=== PATIENT | female | born 1950 | race American Indian/Alaskan Native ===

== ENCOUNTER 2016-12-05 13:43 | Emergency (ER) | payer MEDICARE, OTHER ==
[~2016-12-05] VITALS: Ht 165.1 cm; Wt 85.0 kg
[~2016-12-05 13:43] MED LIST: ALBU0.63 NEB; AMIT100T PO; AMIT10TA PO; AMIT150T PO; APIX5TAB PO; ARIP5TAB6 PO; ASPI325T4 PO; AZIT250T89 PO; BUDE10.2 INH; CARI350T PO; CEFD300C37 PO; CLON2TAB2 PO; DIAZ10TA PO; DIAZ10TA4 PO; DICL100G8 TD; FERR325T20 PO; FLUO10CA7 PO; FLUO40CA2 PO; FURO20TA3 PO; IPRA0.2S35 INH; IRON1TAB60 PO; LEVO15TA6 PO; LEVO80CA PO; LISD60CA PO; LISD70CA3 PO; MV-M1TAB16 PO; OMEG1CAP57 PO; OMEG1CAP6 PO; OXYC-229 PO; OXYC1TAB9 PO; OXYC20TA42 PO; PANT40TA3 PO; PANT40TA5 PO; POTA10TA12 PO; POTA99TA14 PO; ROSU5TAB PO; TRAM50TA2 PO; [UNRECOGNIZED DRUG - OTHER] INH; oxygen INH
[2016-12-05] MEDS ORDERED: SODIUM CHLORIDE FLUSH 10ML SYR IVF ONE (14:30)
[2016-12-05] MEDS ORDERED: ALBUTEROL/IPRATROPIUM 2.5MG/0.5MG, 3 ML NPPB SCH (14:30)
[2016-12-05] MEDS ORDERED: SODIUM CHLORIDE 0.9% 1,000ML IVBOLUS ONE (14:30)
[2016-12-05] MEDS ORDERED: ALBUTEROL/IPRATROPIUM 2.5MG/0.5MG, 3 ML ONE (14:42)
[2016-12-05 15:18] LABS: ASPARTATE AMINO TRANSFERASE 27 U/L (15-37); BLOOD UREA NITROGEN 9 mg/dL (7-18)
[2016-12-05 15:28] LABS: IS PT STATUS REG ER OR PRE ER? YES
[2016-12-05] MEDS ORDERED: OMNIPAQUE 350 MG/ML, 100ML BOTTLE ONE (17:49)
[2016-12-05 19:49] VITALS: BP 144/63
== END 2016-12-05 19:51 | disposition home or self-care (01) ==
LOC: ED 15:59
DX: J44.1 Chronic obstructive pulmonary disease with (acute) exacerbation (principal); J20.8 Acute bronchitis due to other specified organisms; I10 Essential (primary) hypertension; Z87.891 Personal history of nicotine dependence
CPT/HCPCS: 36415; 71010; 71275; 80053; 83605; 83880; 84484; 85025; 85379; 87040; 93005; 94640; 96360; 96361; 99285; J7030; J7512; Q9967; J7620

== ENCOUNTER 2017-01-22 10:23 | Inpatient (IN) | payer MEDICARE, OTHER ==
[~2017-01-22] VITALS: Ht 165.1 cm; Wt 96.4 kg
[~2017-01-22 10:23] MED LIST changes: +IPRA4AER INH; +LIDO1KIT TP
[2017-01-22] MEDS ORDERED: methylPREDNISolone SOD SUCC 125 MG/2 ML ONE (11:26)
[2017-01-22] MEDS ORDERED: ALBUTEROL/IPRATROPIUM 2.5MG/0.5MG, 3 ML NPPB PRN (11:30)
[2017-01-22] MEDS ORDERED: SODIUM CHLORIDE FLUSH 10ML SYR IVF ONE (11:30)
[2017-01-22] MEDS ORDERED: methylPREDNISolone SOD SUCC 125 MG/2 ML IVP ONE (11:30)
[2017-01-22] MEDS ORDERED: ALBUTEROL/IPRATROPIUM 2.5MG/0.5MG, 3 ML ONE (11:40)
[2017-01-22] MEDS ORDERED: OXYcodone/APAP 10/325MG TABLET ONE (12:55)
[2017-01-22] MEDS ORDERED: OXYcodone/APAP 10/325MG TABLET PO ONE (13:00)
[2017-01-22 13:11] LABS: ASPARTATE AMINO TRANSFERASE 31 U/L (15-37); BLOOD UREA NITROGEN 12 mg/dL (7-18)
[2017-01-22 13:16] LABS: IS PT STATUS REG ER OR PRE ER? YES
[2017-01-22] MEDS ORDERED: SODIUM CHLORIDE FLUSH 10ML SYR IVF PRN (14:00)
[2017-01-22] MEDS ORDERED: POLYETHYLENE GLYCOL 17 GM PACKET PO PRN (15:00)
[2017-01-22] MEDS ORDERED: ONDANSETRON ODT 4 MG PO PRN (15:00)
[2017-01-22] MEDS ORDERED: ONDANSETRON 2MG/ML, 2ML IVPush PRN (15:00)
[2017-01-22] MEDS ORDERED: DOCUSATE 100 MG CAPSULE PO PRN (15:00)
[2017-01-22] MEDS ORDERED: DIAZEPAM 10 MG TABLET PO PRN (15:00)
[2017-01-22] MEDS ORDERED: GUAIFENESIN/DM 200-20MG, 10ML UDC PO PRN (15:00)
[2017-01-22] MEDS ORDERED: ALBUTEROL SULFATE NEB PRN (15:00)
[2017-01-22] MEDS ORDERED: BISACODYL 10 MG SUPP PR PRN (15:00)
[2017-01-22] MEDS ORDERED: ACETAMINOPHEN 325 MG TABLET PO PRN (15:00)
[2017-01-22] MEDS ORDERED: (Ipratropium/Albuterol Sulfate (Combivent Respimat Inhal Spray INH PRN (15:00)
[2017-01-22] MEDS ORDERED: CEFTRIAXONE 1,000 MG in SODIUM CHLORIDE 0.9% 50 ML IV SCH (15:30)
[2017-01-22 15:44] VITALS: BP 107/66
[2017-01-22] MEDS: ALBUTEROL/IPRATROPIUM 2.5MG/0.5MG, 3 ML NPPB SCH (16:07)
[2017-01-22] MEDS: ENOXAPARIN 40 MG/0.4 ML SQ SCH (16:29)
[2017-01-22] MEDS: OXYcodone/APAP 10/325MG TABLET PO SCH ×2 (16:29→22:11)
[2017-01-22] MEDS: OxyconTIN ER 20 MG TAB.ER PO SCH ×2 (16:29→22:12)
[2017-01-22] MEDS: methylPREDNISolone SOD SUCC 125 MG/2 ML IVPush SCH ×2 (17:48→22:12)
[2017-01-22 18:28] VITALS: BP 116/69
[2017-01-22 19:59] LABS: IS PT STATUS REG ER OR PRE ER? NO
[2017-01-22 20:00] VITALS: BP 123/68
[2017-01-22] MEDS: CARISOPRODOL 350 MG TABLET PO SCH (22:11)
[2017-01-22] MEDS: AMITRIPTYLINE 100 MG TABLET PO SCH (22:11)
[2017-01-22] MEDS: DOXYCYCLINE 100MG TABLET PO SCH (22:11)
[2017-01-23 00:52] LABS: IS PT STATUS REG ER OR PRE ER? NO
[2017-01-23 02:00] VITALS: BP 113/62
[2017-01-23] MEDS: OXYcodone/APAP 10/325MG TABLET PO SCH ×7 (02:25→23:00)
[2017-01-23 05:23] LABS: ASPARTATE AMINO TRANSFERASE 22 U/L (15-37); BLOOD UREA NITROGEN 16 mg/dL (7-18)
[2017-01-23] MEDS: methylPREDNISolone SOD SUCC 125 MG/2 ML IVPush SCH (06:17)
[2017-01-23] MEDS ORDERED: OMNIPAQUE 350 MG/ML, 100ML BOTTLE ONE (06:30)
[2017-01-23 06:41] VITALS: BP 123/75
[2017-01-23] MEDS: ALBUTEROL/IPRATROPIUM 2.5MG/0.5MG, 3 ML NPPB SCH ×4 (07:57→20:00)
[2017-01-23] MEDS ORDERED: FLUOXETINE HCL 40 MG PO SCH (09:00)
[2017-01-23] MEDS: OxyconTIN ER 20 MG TAB.ER PO SCH ×2 (09:53→23:00)
[2017-01-23] MEDS: CARISOPRODOL 350 MG TABLET PO SCH ×2 (09:53→20:55)
[2017-01-23] MEDS: DOXYCYCLINE 100MG TABLET PO SCH ×2 (09:53→20:55)
[2017-01-23] MEDS: PANTOPROZOLE 40MG TABLET PO SCH (09:53)
[2017-01-23] MEDS: LISDEXAMFETAMINE DIMESYLATE 70 MG PO SCH (12:05)
[2017-01-23] MEDS: FLUOXETINE 20 MG CAPSULE PO SCH (12:05)
[2017-01-23 13:04] VITALS: BP 114/57
[2017-01-23] MEDS ORDERED: CEFTRIAXONE PMX 1GM/50ML 50 ML IV SCH (15:30)
[2017-01-23] MEDS: ENOXAPARIN 40 MG/0.4 ML SQ SCH (16:14)
[2017-01-23 20:11] VITALS: BP 92/59
[2017-01-23] MEDS: AMITRIPTYLINE 100 MG TABLET PO SCH (20:54)
[2017-01-23 21:04] VITALS: BP 101/54
[2017-01-24 01:59] VITALS: BP 101/59
[2017-01-24] MEDS: OXYcodone/APAP 10/325MG TABLET PO SCH ×4 (03:00→14:51)
[2017-01-24 07:00] VITALS: BP 119/72
[2017-01-24] MEDS: ALBUTEROL/IPRATROPIUM 2.5MG/0.5MG, 3 ML NPPB SCH ×2 (07:00→10:21)
[2017-01-24] MEDS: CARISOPRODOL 350 MG TABLET PO SCH (08:22)
[2017-01-24] MEDS: OxyconTIN ER 20 MG TAB.ER PO SCH ×2 (08:22→14:51)
[2017-01-24] MEDS: FLUOXETINE 20 MG CAPSULE PO SCH (08:22)
[2017-01-24] MEDS: DOXYCYCLINE 100MG TABLET PO SCH (08:23)
[2017-01-24] MEDS: PANTOPROZOLE 40MG TABLET PO SCH (08:23)
[2017-01-24] MEDS: LISDEXAMFETAMINE DIMESYLATE 70 MG PO SCH (09:00)
[2017-01-24] MEDS ORDERED: CEFD300C37 PO (11:04)
[2017-01-24] MEDS ORDERED: DOXY100T PO (11:04)
[2017-01-24] MEDS ORDERED: PRED20TA PO (11:04)
[2017-01-24 12:15] VITALS: BP 116/72
[2017-01-24] MEDS: ENOXAPARIN 40 MG/0.4 ML SQ SCH (14:51)
[2017-01-24] MEDS ORDERED: CEFDINIR 300 MG CAPSULE PO SCH (21:00)
== END 2017-01-24 16:30 | disposition home or self-care (01) | DRG 189 ==
LOC: ED 12:39 → EDIP 13:34 → 3NE 15:00 → 4EST 18:22
PROVIDERS: ADMIT Internal Medicine; ATTEND Internal Medicine
DX: J96.21 Acute and chronic respiratory failure with hypoxia (principal); J45.52 Severe persistent asthma with status asthmaticus; F13.20 Sedative, hypnotic or anxiolytic dependence, uncomplicated; J44.1 Chronic obstructive pulmonary disease with (acute) exacerbation; E78.00 Pure hypercholesterolemia, unspecified; F32.9 Major depressive disorder, single episode, unspecified; Z96.651 Presence of right artificial knee joint; F43.21 Adjustment disorder with depressed mood; G89.29 Other chronic pain; F41.9 Anxiety disorder, unspecified; T38.0X5A Adverse effect of glucocorticoids and synthetic analogues, initial encounter; M54.9 Dorsalgia, unspecified; K21.9 Gastro-esophageal reflux disease without esophagitis; Z79.891 Long term (current) use of opiate analgesic; Z79.899 Other long term (current) drug therapy; Z82.5 Family history of asthma and other chronic lower respiratory diseases; Z85.3 Personal history of malignant neoplasm of breast; Z86.711 Personal history of pulmonary embolism; Z86.718 Personal history of other venous thrombosis and embolism; Z87.891 Personal history of nicotine dependence; Z92.3 Personal history of irradiation; Z99.81 Dependence on supplemental oxygen; Z90.49 Acquired absence of other specified parts of digestive tract
CPT/HCPCS: 36415; 71010; 71275; 80053; 83605; 83735; 83880; 84145; 84484; 85025; 87040; 93005; 94640; 96374; J0696; J1650; J7620; Q9967; J2930; J7512

== ENCOUNTER 2017-02-02 03:07 | Inpatient (IN) | payer MEDICARE, OTHER ==
[~2017-02-02] VITALS: Ht 167.6 cm; Wt 104.2 kg
[~2017-02-02 03:07] MED LIST changes: +DOXY100T PO; +PRED20TA PO
[2017-02-02] MEDS ORDERED: SODIUM CHLORIDE 0.9% 1,000 ML IV ONE (03:14)
[2017-02-02] MEDS ORDERED: SODIUM CHLORIDE FLUSH 10ML SYR IVF ONE (03:30)
[2017-02-02] MEDS ORDERED: methylPREDNISolone SOD SUCC 125 MG/2 ML IVP ONE (03:30)
[2017-02-02] MEDS ORDERED: methylPREDNISolone SOD SUCC 125 MG/2 ML ONE (03:45)
[2017-02-02 03:59] LABS: BLOOD UREA NITROGEN 12 mg/dL (7-18)
[2017-02-02 04:04] LABS: ASPARTATE AMINO TRANSFERASE 13 U/L (15-37)
[2017-02-02 04:05] LABS: IS PT STATUS REG ER OR PRE ER? YES
[2017-02-02] MEDS ORDERED: AZITHROMYCIN 500 MG in SODIUM CHLORIDE 0.9% 250 ML IV ONE (04:30)
[2017-02-02] MEDS ORDERED: BISACODYL 10 MG SUPP PR PRN (06:00)
[2017-02-02] MEDS ORDERED: DIAZEPAM 10 MG TABLET PO PRN (06:00)
[2017-02-02] MEDS ORDERED: FUROSEMIDE 20 MG/2 ML IV ONE (06:00)
[2017-02-02] MEDS ORDERED: PROMETHAZINE 25 MG/ML, 1ML IM PRN (06:00)
[2017-02-02] MEDS ORDERED: DOCUSATE 100 MG CAPSULE PO PRN (06:00)
[2017-02-02] MEDS ORDERED: POLYETHYLENE GLYCOL 17 GM PACKET PO PRN (06:00)
[2017-02-02] MEDS ORDERED: ONDANSETRON 2MG/ML, 2ML IVPush PRN (06:00)
[2017-02-02 06:05] VITALS: BP 109/69
[2017-02-02] MEDS: methylPREDNISolone SOD SUCC 125 MG/2 ML IVPush SCH ×3 (06:35→17:28)
[2017-02-02] MEDS: ENOXAPARIN 40 MG/0.4 ML SQ SCH (06:35)
[2017-02-02] MEDS: POTASSIUM CHLORIDE 20 MEQ TAB.ER.PRT PO SCH ×3 (06:35→15:14)
[2017-02-02 07:30] VITALS: BP 148/82
[2017-02-02] MEDS: PANTOPROZOLE 40MG TABLET PO SCH (08:25)
[2017-02-02] MEDS: CARISOPRODOL 350 MG TABLET PO SCH ×2 (08:25→20:15)
[2017-02-02] MEDS: FLUOXETINE 20 MG CAPSULE PO SCH (08:25)
[2017-02-02] MEDS: OxyconTIN ER 20 MG TAB.ER PO SCH ×2 (08:26→15:20)
[2017-02-02] MEDS: SENNA/DOCUSATE TABLET PO SCH (08:26)
[2017-02-02] MEDS: OXYcodone/APAP 10/325MG TABLET PO SCH ×4 (08:26→20:15)
[2017-02-02] MEDS: LISDEXAMFETAMINE DIMESYLATE 70 MG PO SCH (08:27)
[2017-02-02 11:16] LABS: IS PT STATUS REG ER OR PRE ER? NO
[2017-02-02] MEDS ORDERED: OMNIPAQUE 350 MG/ML, 100ML BOTTLE ONE (12:07)
[2017-02-02 13:49] VITALS: BP 98/66
[2017-02-02] MEDS ORDERED: ALBUTEROL/IPRATROPIUM 2.5MG/0.5MG, 3 ML NPPB PRN (14:00)
[2017-02-02] MEDS: DOXYCYCLINE 100 MG in DEXTROSE 5% 250 ML IV SCH (15:14)
[2017-02-02 16:21] LABS: IS PT STATUS REG ER OR PRE ER? NO
[2017-02-02 17:53] VITALS: BP 127/76
[2017-02-02 19:13] VITALS: BP 111/72
[2017-02-02] MEDS: ALBUTEROL/IPRATROPIUM 2.5MG/0.5MG, 3 ML NPPB SCH (19:20)
[2017-02-02] MEDS: AMITRIPTYLINE 100 MG TABLET PO SCH (20:15)
[2017-02-03] MEDS: OXYcodone/APAP 10/325MG TABLET PO SCH ×6 (00:21→19:56)
[2017-02-03] MEDS: OxyconTIN ER 20 MG TAB.ER PO SCH ×3 (00:21→16:46)
[2017-02-03] MEDS: methylPREDNISolone SOD SUCC 125 MG/2 ML IVPush SCH ×4 (00:21→19:55)
[2017-02-03 02:10] VITALS: BP 118/50
[2017-02-03] MEDS: DOXYCYCLINE 100 MG in DEXTROSE 5% 250 ML IV SCH ×2 (04:23→16:46)
[2017-02-03 05:41] LABS: BLOOD UREA NITROGEN 17 mg/dL (7-18)
[2017-02-03 05:45] LABS: ASPARTATE AMINO TRANSFERASE 15 U/L (15-37)
[2017-02-03] MEDS: ENOXAPARIN 40 MG/0.4 ML SQ SCH (06:02)
[2017-02-03 06:23] LABS: DIFF TOTAL CELLS COUNTED 100 CELL DIFF
[2017-02-03 06:26] LABS: VERIFY COUNTS? YES
[2017-02-03 06:45] VITALS: BP 113/74
[2017-02-03] MEDS: ALBUTEROL/IPRATROPIUM 2.5MG/0.5MG, 3 ML NPPB SCH ×2 (07:21→11:00)
[2017-02-03] MEDS: LISDEXAMFETAMINE DIMESYLATE 70 MG PO SCH (09:00)
[2017-02-03] MEDS: SENNA/DOCUSATE TABLET PO SCH (09:00)
[2017-02-03] MEDS: PANTOPROZOLE 40MG TABLET PO SCH (09:01)
[2017-02-03] MEDS: FLUOXETINE 20 MG CAPSULE PO SCH (09:01)
[2017-02-03] MEDS: CARISOPRODOL 350 MG TABLET PO SCH ×2 (09:02→21:21)
[2017-02-03] MEDS ORDERED: TEMPLATE NON-FORMULARY MED. (Ipratropium/Albuterol Sulfate (Combivent Respimat Inhal Spray INH PRN (11:00)
[2017-02-03] MEDS ORDERED: IPRATROPIUM 0.5 MG/2.5 ML INHA HHN SCH (11:00)
[2017-02-03] MEDS: FLUTICASONE/VILANTEROL 100-25MCG/INH INH SCH (12:56)
[2017-02-03 13:45] VITALS: BP 127/73
[2017-02-03 18:33] VITALS: BP 132/97
[2017-02-03] MEDS: AMITRIPTYLINE 100 MG TABLET PO SCH (21:22)
[2017-02-04 00:33] VITALS: BP 115/73
[2017-02-04] MEDS: OXYcodone/APAP 10/325MG TABLET PO SCH ×3 (00:38→09:57)
[2017-02-04] MEDS: OxyconTIN ER 20 MG TAB.ER PO SCH ×2 (00:38→09:57)
[2017-02-04] MEDS: methylPREDNISolone SOD SUCC 125 MG/2 ML IVPush SCH ×2 (01:29→09:56)
[2017-02-04] MEDS: DOXYCYCLINE 100 MG in DEXTROSE 5% 250 ML IV SCH (04:09)
[2017-02-04] MEDS: ENOXAPARIN 40 MG/0.4 ML SQ SCH (05:54)
[2017-02-04 07:16] VITALS: BP 127/80
[2017-02-04] MEDS: LISDEXAMFETAMINE DIMESYLATE 70 MG PO SCH (09:00)
[2017-02-04] MEDS: PANTOPROZOLE 40MG TABLET PO SCH (09:00)
[2017-02-04] MEDS: CARISOPRODOL 350 MG TABLET PO SCH (09:57)
[2017-02-04] MEDS: SENNA/DOCUSATE TABLET PO SCH (09:57)
[2017-02-04] MEDS: FLUTICASONE/VILANTEROL 100-25MCG/INH INH SCH (09:57)
[2017-02-04] MEDS: FLUOXETINE 20 MG CAPSULE PO SCH (09:57)
[2017-02-04] MEDS ORDERED: DOXY100T PO (12:05)
[2017-02-04] MEDS ORDERED: CEFD300C37 PO (12:05)
[2017-02-04] MEDS ORDERED: PRED10TA PO ×2 (12:05→12:19)
[2017-02-04] MEDS ORDERED: IPRA4AER INH (12:07)
[2017-02-04] MEDS ORDERED: FLUT1AER INH (12:07)
[2017-02-04 12:56] VITALS: BP 120/73
[2017-02-04] MEDS ORDERED: ALBUTEROL/IPRATROPIUM 2.5MG/0.5MG, 3 ML NPPB PRN (15:00)
== END 2017-02-04 15:00 | disposition home health service (06) | DRG 189 ==
LOC: ED 03:19 → EDIP 05:04 → 4EST 05:51
PROVIDERS: ADMIT Internal Medicine; ATTEND Internal Medicine
DX: J96.21 Acute and chronic respiratory failure with hypoxia (principal); I50.31 Acute diastolic (congestive) heart failure; J44.0 Chronic obstructive pulmonary disease with (acute) lower respiratory infection; J44.1 Chronic obstructive pulmonary disease with (acute) exacerbation; F11.20 Opioid dependence, uncomplicated; J20.9 Acute bronchitis, unspecified; C50.919 Malignant neoplasm of unspecified site of unspecified female breast; E78.5 Hyperlipidemia, unspecified; E78.00 Pure hypercholesterolemia, unspecified; D64.9 Anemia, unspecified; F41.9 Anxiety disorder, unspecified; F32.9 Major depressive disorder, single episode, unspecified; E87.6 Hypokalemia; G89.29 Other chronic pain; K21.9 Gastro-esophageal reflux disease without esophagitis; Z85.3 Personal history of malignant neoplasm of breast; Z86.711 Personal history of pulmonary embolism; Z86.718 Personal history of other venous thrombosis and embolism; Z92.3 Personal history of irradiation; Z99.81 Dependence on supplemental oxygen
CPT/HCPCS: 36415; 71010; 71275; 80053; 83880; 84484; 85025; 87040; 93005; 93306; 94640; 96365; 96375; J0456; J1650; J7060; J7620; Q9967; J1940; J2930; J7030; J7050

== ENCOUNTER 2017-02-16 17:01 | Emergency (ER) | payer MEDICARE, OTHER ==
[~2017-02-16] VITALS: Ht 165.1 cm; Wt 92.9 kg
[~2017-02-16 17:01] MED LIST changes: +FLUT1AER INH; +PRED10TA PO
[2017-02-16 17:41] VITALS: BP 117/74
== END 2017-02-16 19:06 | disposition home or self-care (01) ==
LOC: ED 19:00
DX: I80.8 Phlebitis and thrombophlebitis of other sites (principal); I10 Essential (primary) hypertension; Z87.891 Personal history of nicotine dependence
CPT/HCPCS: 99284

== ENCOUNTER 2017-02-23 23:37 | Emergency (ER) | payer MEDICARE, OTHER ==
[~2017-02-23] VITALS: Ht 165.1 cm; Wt 92.0 kg
[2017-02-24 00:50] LABS: BLOOD UREA NITROGEN 11 mg/dL (7-18)
[2017-02-24 00:54] LABS: IS PT STATUS REG ER OR PRE ER? YES
[2017-02-24 01:36] VITALS: BP 110/68
== END 2017-02-24 02:52 | disposition home or self-care (01) ==
LOC: ED 23:59
DX: J44.9 Chronic obstructive pulmonary disease, unspecified (principal); K21.9 Gastro-esophageal reflux disease without esophagitis; E78.00 Pure hypercholesterolemia, unspecified; I11.0 Hypertensive heart disease with heart failure; I50.9 Heart failure, unspecified
CPT/HCPCS: 36415; 71010; 80048; 82040; 83880; 84484; 85025; 93005; 99285

== ENCOUNTER 2017-03-03 14:36 | Inpatient (IN) | payer MEDICARE, OTHER ==
[~2017-03-03] VITALS: Ht 165.1 cm; Wt 101.1 kg
[2017-03-03] MEDS ORDERED: SODIUM CHLORIDE 0.9% 1,000 ML IV ONE (15:14)
[2017-03-03] MEDS ORDERED: SODIUM CHLORIDE 0.9% 1,000ML IVBOLUS ONE (15:30)
[2017-03-03] MEDS ORDERED: SODIUM CHLORIDE FLUSH 10ML SYR IVF ONE (15:30)
[2017-03-03] MEDS ORDERED: ACETAMINOPHEN 500 MG TABLET PO ONE (15:30)
[2017-03-03] MEDS ORDERED: AZITHROMYCIN 500 MG in SODIUM CHLORIDE 0.9% 250 ML IV ONE (16:00)
[2017-03-03] MEDS ORDERED: LEVO80CA PO (16:00)
[2017-03-03] MEDS ORDERED: CEFTRIAXONE PMX 1GM/50ML 50 ML IV ONE (16:00)
[2017-03-03] MEDS ORDERED: AMIT10TA PO (16:02)
[2017-03-03 16:03] LABS: BLOOD UREA NITROGEN 8 mg/dL (7-18)
[2017-03-03 16:05] LABS: IS PT STATUS REG ER OR PRE ER? YES
[2017-03-03 16:07] LABS: ASPARTATE AMINO TRANSFERASE 37 U/L (15-37)
[2017-03-03] MEDS ORDERED: CEFTRIAXONE PMX 1GM/50ML 50 ML ONE (16:09)
[2017-03-03] MEDS ORDERED: ACETAMINOPHEN 325 MG TABLET ONE (16:09)
[2017-03-03] MEDS ORDERED: ACETAMINOPHEN 500 MG TABLET ONE (16:15)
[2017-03-03] MEDS ORDERED: ONDANSETRON 2MG/ML, 2ML IVPush PRN (17:30)
[2017-03-03] MEDS ORDERED: ONDANSETRON ODT 4 MG PO PRN (17:30)
[2017-03-03] MEDS ORDERED: ENOXAPARIN 40 MG/0.4 ML ONE (17:51)
[2017-03-03] MEDS ORDERED: methylPREDNISolone SOD SUCC 125 MG/2 ML ONE (17:51)
[2017-03-03] MEDS ORDERED: METRONIDAZOLE PMX 500MG/100ML 100 ML IV SCH (18:00)
[2017-03-03] MEDS ORDERED: DIAZEPAM 10 MG TABLET PO PRN (18:00)
[2017-03-03] MEDS: methylPREDNISolone SOD SUCC 125 MG/2 ML IVPush SCH (18:00)
[2017-03-03] MEDS ORDERED: OXYcodone/APAP 10/325MG TABLET PO PRN (18:00)
[2017-03-03] MEDS: ENOXAPARIN 40 MG/0.4 ML SQ SCH (18:01)
[2017-03-03] MEDS ORDERED: ALBUTEROL/IPRATROPIUM 2.5MG/0.5MG, 3 ML ONE (19:17)
[2017-03-03] MEDS ORDERED: ALBUTEROL/IPRATROPIUM 2.5MG/0.5MG, 3 ML NPPB PRN (19:30)
[2017-03-03] MEDS: ALBUTEROL/IPRATROPIUM 2.5MG/0.5MG, 3 ML NPPB SCH (19:36)
[2017-03-03] MEDS: CARISOPRODOL 350 MG TABLET PO SCH (21:00)
[2017-03-03] MEDS: OxyconTIN ER 20 MG TAB.ER PO SCH (21:00)
[2017-03-03] MEDS: AMITRIPTYLINE 10 MG TABLET PO SCH (21:00)
[2017-03-03 21:06] VITALS: BP 102/68
[2017-03-03] MEDS: METRONIDAZOLE PMX 500MG/100ML 100 ML IV SCH (22:39)
[2017-03-04] MEDS: methylPREDNISolone SOD SUCC 125 MG/2 ML IVPush SCH ×5 (00:53→23:24)
[2017-03-04 02:40] VITALS: BP 105/70
[2017-03-04 04:35] LABS: ASPARTATE AMINO TRANSFERASE 23 U/L (15-37); BLOOD UREA NITROGEN 10 mg/dL (7-18)
[2017-03-04] MEDS: OxyconTIN ER 20 MG TAB.ER PO SCH ×3 (05:32→20:59)
[2017-03-04] MEDS: METRONIDAZOLE PMX 500MG/100ML 100 ML IV SCH ×3 (06:17→21:42)
[2017-03-04 07:32] VITALS: BP 100/64
[2017-03-04] MEDS: LEVOFLOXACIN/PMX 750MG/150ML 150 ML IV SCH (08:19)
[2017-03-04] MEDS: CARISOPRODOL 350 MG TABLET PO SCH ×2 (08:19→20:59)
[2017-03-04] MEDS: ALBUTEROL/IPRATROPIUM 2.5MG/0.5MG, 3 ML NPPB SCH ×4 (08:33→20:00)
[2017-03-04] MEDS: LISDEXAMFETAMINE DIMESYLATE 70 MG HOMEMEDPO SCH (09:00)
[2017-03-04] MEDS: FLUTICASONE/VILANTEROL 100-25MCG/INH INH SCH (09:00)
[2017-03-04 13:02] VITALS: BP 98/61
[2017-03-04] MEDS: ENOXAPARIN 40 MG/0.4 ML SQ SCH (17:22)
[2017-03-04 18:30] VITALS: BP 121/67
[2017-03-04] MEDS: AMITRIPTYLINE 10 MG TABLET PO SCH (20:59)
[2017-03-05 02:20] VITALS: BP 120/75
[2017-03-05] MEDS: methylPREDNISolone SOD SUCC 125 MG/2 ML IVPush SCH ×2 (04:56→11:27)
[2017-03-05] MEDS: OxyconTIN ER 20 MG TAB.ER PO SCH ×2 (04:56→12:50)
[2017-03-05] MEDS: METRONIDAZOLE PMX 500MG/100ML 100 ML IV SCH ×2 (04:56→14:47)
[2017-03-05 05:25] LABS: BLOOD UREA NITROGEN 19 mg/dL (7-18)
[2017-03-05 06:03] LABS: DIFF TOTAL CELLS COUNTED 100 CELL DIFF
[2017-03-05 06:05] LABS: VERIFY COUNTS? YES
[2017-03-05 06:06] LABS: POLYCHROMASIA 1+
[2017-03-05] MEDS: ALBUTEROL/IPRATROPIUM 2.5MG/0.5MG, 3 ML NPPB SCH ×3 (06:28→14:50)
[2017-03-05 06:32] VITALS: BP 113/71
[2017-03-05] MEDS: LISDEXAMFETAMINE DIMESYLATE 70 MG HOMEMEDPO SCH (08:15)
[2017-03-05] MEDS: LEVOFLOXACIN/PMX 750MG/150ML 150 ML IV SCH (08:15)
[2017-03-05] MEDS: FLUTICASONE/VILANTEROL 100-25MCG/INH INH SCH (08:15)
[2017-03-05] MEDS: CARISOPRODOL 350 MG TABLET PO SCH (08:15)
[2017-03-05 13:03] VITALS: BP 121/69
[2017-03-05] MEDS ORDERED: PRED5TAB PO (14:39)
[2017-03-05] MEDS ORDERED: IPRA3AMP NPPB (14:39)
[2017-03-05] MEDS ORDERED: METR500T PO (14:39)
[2017-03-05] MEDS ORDERED: LEVO750T26 PO (14:39)
[2017-03-05] MEDS ORDERED: FURO-93 PO (14:44)
== END 2017-03-05 18:25 | disposition home or self-care (01) | DRG 871 ==
LOC: ED 16:42 → EDIP 17:26 → 3NW 20:21
PROVIDERS: ADMIT Internal Medicine; ATTEND Internal Medicine
DX: A41.9 Sepsis, unspecified organism (principal); J18.9 Pneumonia, unspecified organism; J96.20 Acute and chronic respiratory failure, unspecified whether with hypoxia or hypercapnia; E44.0 Moderate protein-calorie malnutrition; F11.20 Opioid dependence, uncomplicated; J44.1 Chronic obstructive pulmonary disease with (acute) exacerbation; J44.0 Chronic obstructive pulmonary disease with (acute) lower respiratory infection; D64.9 Anemia, unspecified; E78.5 Hyperlipidemia, unspecified; F32.9 Major depressive disorder, single episode, unspecified; F41.9 Anxiety disorder, unspecified; G89.29 Other chronic pain; Z77.22 Contact with and (suspected) exposure to environmental tobacco smoke (acute) (chronic); Z96.653 Presence of artificial knee joint, bilateral; I50.9 Heart failure, unspecified; I11.0 Hypertensive heart disease with heart failure; Z76.5 Malingerer [conscious simulation]; Z85.3 Personal history of malignant neoplasm of breast; Z86.711 Personal history of pulmonary embolism; Z86.718 Personal history of other venous thrombosis and embolism; Z87.891 Personal history of nicotine dependence; Z92.3 Personal history of irradiation; Z99.81 Dependence on supplemental oxygen; Z90.49 Acquired absence of other specified parts of digestive tract; Z98.891 History of uterine scar from previous surgery; Z68.37 Body mass index [BMI] 37.0-37.9, adult
CPT/HCPCS: 36415; 71010; 80048; 80053; 81003; 83605; 83735; 84484; 85025; 87040; 93005; 94640; 96365; 96366; 96367; J0456; J0696; J1650; J1956; J7620; J2930; J7030; J7050

== ENCOUNTER → 2017-03-26 | Outpatient (CLI) | payer MEDICARE, OTHER ==
[~2017-03-26] MED LIST changes: +ARIP5TAB13 PO; -ARIP5TAB6 PO; +ASPI325T17 PO; -ASPI325T4 PO; +DICL100G19 TD; -DICL100G8 TD; +FERR325T18 PO; -FERR325T20 PO; +FURO-93 PO; +IPRA3AMP NPPB; +LEVO750T26 PO; -LISD70CA3 PO; +LISD70CA5 PO; +METR500T PO; -OXYC-229 PO; +OXYC-307 PO; +PRED5TAB PO
== END | disposition home or self-care (01) ==
LOC: CFH 12:51
PROVIDERS: ATTEND Internal Medicine
DX: J47.9 Bronchiectasis, uncomplicated (principal); J98.11 Atelectasis
CPT/HCPCS: 71250

== ENCOUNTER 2017-05-22 17:21 | Emergency (ER) | payer MEDICARE, OTHER ==
[~2017-05-22] VITALS: Ht 165.1 cm; Wt 81.0 kg
[2017-05-22] MEDS ORDERED: ALBUTEROL/IPRATROPIUM 2.5MG/0.5MG, 3 ML NPPB ONE (18:30)
[2017-05-22 18:50] LABS: ASPARTATE AMINO TRANSFERASE 16 U/L (15-37); BLOOD UREA NITROGEN 6 mg/dL (7-18)
[2017-05-22 18:54] LABS: HEMATOCRIT 35.5 % (34.6-47.8); HEMOGLOBIN 11.7 g/dL (11.7-16.4); WHITE BLOOD COUNT 6.5 x10^3/uL (3.4-10)
[2017-05-22 19:02] LABS: IS PT STATUS REG ER OR PRE ER? YES
[2017-05-22] MEDS ORDERED: POTASSIUM CHLORIDE 20 MEQ TAB.ER.PRT ONE (19:21)
[2017-05-22 19:27] VITALS: BP 113/65
[2017-05-22] MEDS ORDERED: POTASSIUM CHLORIDE 20 MEQ TAB.ER.PRT PO ONE (19:30)
== END 2017-05-22 19:49 | disposition home or self-care (01) ==
LOC: ED 18:06
DX: J44.1 Chronic obstructive pulmonary disease with (acute) exacerbation (principal); E87.6 Hypokalemia; K21.9 Gastro-esophageal reflux disease without esophagitis; E78.00 Pure hypercholesterolemia, unspecified; I11.0 Hypertensive heart disease with heart failure; I50.9 Heart failure, unspecified; Z86.711 Personal history of pulmonary embolism; Z85.3 Personal history of malignant neoplasm of breast; Z87.891 Personal history of nicotine dependence
CPT/HCPCS: 36415; 71010; 80053; 83605; 84145; 84484; 85025; 85610; 85730; 87040; 93005; 94640; 99285; J7620

== ENCOUNTER 2017-08-19 07:27 | Inpatient (IN) | payer MEDICARE, OTHER ==
[~2017-08-19] VITALS: Ht 165.1 cm; Wt 97.1 kg
[2017-08-19] MEDS ORDERED: ACETAMINOPHEN 325 MG TABLET ONE ×2 (07:58→08:23)
[2017-08-19] MEDS ORDERED: SODIUM CHLORIDE 0.9% 1,000ML IVBOLUS ONE (08:00)
[2017-08-19] MEDS ORDERED: SODIUM CHLORIDE FLUSH 10ML SYR IVF ONE (08:00)
[2017-08-19] MEDS ORDERED: ACETAMINOPHEN 325 MG TABLET PO ONE (08:00)
[2017-08-19 08:13] LABS: RAPID INFLUENZA A Negative (Negative)
[2017-08-19 08:14] LABS: RAPID INFLUENZA B Negative (Negative)
[2017-08-19] MEDS ORDERED: PIPERACILLIN/TAZO/PMX 3.375GM 50 ML ONE (08:23)
[2017-08-19 08:28] LABS: ALBUMIN 3.1 g/dL (3.4-5.0); ANION GAP 11 mmol/L (5-15); CALCIUM 8.3 mg/dL (8.5-10.1); CHLORIDE 107 mmol/L (98-107); CREATININE 0.95 mg/dL (0.55-1.02)
[2017-08-19] MEDS ORDERED: PIPERACILLIN/TAZO/PMX 3.375GM 50 ML IV ONE (08:30)
[2017-08-19 09:18] LABS: BASOPHILS # (AUTO) 0.02 x10^3/uL (0-0.1); BASOPHILS % (AUTO) 0 % (0-1); EOSINOPHILS # (AUTO) 0.02 x10^3/uL (0-0.4); EOSINOPHILS % (AUTO) 0 % (1-7); LYMPHOCYTES # (AUTO) 0.49 x10^3/uL (1-3.4); LYMPHOCYTES % (AUTO) 7 % (22-44); MD NO; MEAN CORPUSCULAR HEMOGLOBIN 28.2 pg (27.0-34.8); MEAN CORPUSCULAR HGB CONC 32.9 g/dL (32.4-35.8); MEAN CORPUSCULAR VOLUME 85.8 fL (80-100); MEAN PLATELET VOLUME 9.4 fL (7.4-10.4); MONOCYTES # (AUTO) 0.07 x10^3/uL (0.2-0.8); MONOCYTES % (AUTO) 1 % (2-9); NEUTROPHILS # (AUTO) 6.47 x10^3/uL (1.8-6.8); NEUTROPHILS % (AUTO) 92 % (42-75); PLATELET COUNT 177 x10^3/uL (130-400); RED BLOOD COUNT 3.54 x10^6/uL (3.82-5.3); RED CELL DISTRIBUTION WIDTH 15.1 % (9.6-15.2)
[2017-08-19] MEDS ORDERED: PHARMACY MAY ADJ FOR RENAL FX MC PRN (10:30)
[2017-08-19] MEDS ORDERED: GUAIFENESIN/DM 200-20MG, 10ML UDC PO PRN (10:30)
[2017-08-19] MEDS ORDERED: ONDANSETRON 2MG/ML, 2ML IVPB PRN (10:30)
[2017-08-19] MEDS ORDERED: HEPARIN 5,000 UNITS/ML, 1ML INJ SCH (10:30)
[2017-08-19] MEDS ORDERED: ACETAMINOPHEN 325 MG TABLET PO PRN (10:30)
[2017-08-19 10:54] VITALS: BP 92/57
[2017-08-19] MEDS ORDERED: DIAZEPAM 10 MG TABLET PO PRN (11:00)
[2017-08-19] MEDS: OXYcodone/APAP 10/325MG TABLET PO SCH ×4 (11:00→22:58)
[2017-08-19] MEDS: methylPREDNISolone SOD SUCC 40 MG/ML IV SCH ×3 (12:07→22:58)
[2017-08-19] MEDS: CEFTRIAXONE 2 GM in SODIUM CHLORIDE 0.9% 50 ML IVPB SCH (12:07)
[2017-08-19] MEDS: FAMOTIDINE 20 MG TABLET PO SCH ×2 (12:07→22:58)
[2017-08-19] MEDS: INSULIN LISPRO 100 UNITS/ML, PEN SQ-INSULIN SCH ×3 (12:08→21:16)
[2017-08-19 12:38] VITALS: BP 106/56
[2017-08-19] MEDS: AZITHROMYCIN 500 MG in SODIUM CHLORIDE 0.9% 250 ML IV SCH (13:34)
[2017-08-19] MEDS ORDERED: HEPARIN 5,000 UNITS/ML, 1ML ONE (17:21)
[2017-08-19] MEDS: POTASSIUM PHOSPHATE IV SCH (17:23)
[2017-08-19] MEDS: POTASSIUM CHLORIDE IV SCH (17:23)
[2017-08-19] MEDS: HEPARIN 5,000 UNITS/ML, 1ML SQ SCH (17:23)
[2017-08-19] MEDS: [UNRECOGNIZED DRUG - OTHER] IV SCH (17:23)
[2017-08-19] MEDS: MAGNESIUM SULFATE IV SCH (17:23)
[2017-08-19 20:32] VITALS: BP 108/65
[2017-08-19] MEDS: AMITRIPTYLINE 10 MG TABLET PO SCH (21:15)
[2017-08-19] MEDS: CARISOPRODOL 350 MG TABLET PO SCH (21:15)
[2017-08-19] MEDS: OxyconTIN ER 20 MG TAB.ER PO SCH (21:15)
[2017-08-19 23:35] LABS: MICROSCOPIC NOT IND
[2017-08-19 23:39] LABS: CULTURE INDICATED? NO
[2017-08-20 01:13] VITALS: BP_SYST 152; BP_SYST 99; BP_DIAS 66; BP_DIAS 73
[2017-08-20] MEDS: POTASSIUM CHLORIDE IV SCH ×3 (03:00→22:42)
[2017-08-20] MEDS: MAGNESIUM SULFATE IV SCH ×3 (03:00→22:42)
[2017-08-20] MEDS: POTASSIUM PHOSPHATE IV SCH ×3 (03:00→22:42)
[2017-08-20] MEDS: [UNRECOGNIZED DRUG - OTHER] IV SCH ×3 (03:00→22:42)
[2017-08-20] MEDS: OXYcodone/APAP 10/325MG TABLET PO SCH ×4 (04:58→22:59)
[2017-08-20] MEDS: methylPREDNISolone SOD SUCC 40 MG/ML IV SCH ×4 (04:59→22:59)
[2017-08-20] MEDS: HEPARIN 5,000 UNITS/ML, 1ML SQ SCH ×3 (04:59→21:12)
[2017-08-20 05:45] LABS: MEAN CORPUSCULAR HEMOGLOBIN 28.6 pg (27.0-34.8); MEAN CORPUSCULAR VOLUME 86.7 fL (80-100); MEAN PLATELET VOLUME 9.5 fL (7.4-10.4); PLATELET COUNT 221 x10^3/uL (130-400); RED BLOOD COUNT 4.01 x10^6/uL (3.82-5.3); RED CELL DISTRIBUTION WIDTH 15.2 % (9.6-15.2)
[2017-08-20 05:47] LABS: ANION GAP 8 mmol/L (5-15); CHLORIDE 110 mmol/L (98-107)
[2017-08-20 05:49] LABS: CREATININE 0.81 mg/dL (0.55-1.02)
[2017-08-20 06:31] LABS: BASOPHILS # (AUTO) 0.01 x10^3/uL (0-0.1); BASOPHILS % (AUTO) 0 % (0-1); EOSINOPHILS % (AUTO) 0 % (1-7); LYMPHOCYTES # (AUTO) 1.08 x10^3/uL (1-3.4); LYMPHOCYTES % (AUTO) 5 % (22-44); MD SCAN; MONOCYTES # (AUTO) 0.35 x10^3/uL (0.2-0.8); MONOCYTES % (AUTO) 2 % (2-9); NEUTROPHILS # (AUTO) 22.12 x10^3/uL (1.8-6.8); NEUTROPHILS % (AUTO) 94 % (42-75)
[2017-08-20] MEDS: INSULIN LISPRO 100 UNITS/ML, PEN SQ-INSULIN SCH ×4 (07:00→21:00)
[2017-08-20 07:08] VITALS: BP 105/63
[2017-08-20] MEDS: CARISOPRODOL 350 MG TABLET PO SCH ×2 (10:20→21:12)
[2017-08-20] MEDS: FAMOTIDINE 20 MG TABLET PO SCH ×2 (10:20→22:59)
[2017-08-20] MEDS: CEFTRIAXONE 2 GM in SODIUM CHLORIDE 0.9% 50 ML IVPB SCH (10:20)
[2017-08-20] MEDS: OxyconTIN ER 20 MG TAB.ER PO SCH ×2 (10:20→21:12)
[2017-08-20] MEDS: FLUTICASONE/VILANTEROL 100-25MCG/INH INH SCH (12:04)
[2017-08-20] MEDS: AZITHROMYCIN 500 MG in SODIUM CHLORIDE 0.9% 250 ML IV SCH (12:25)
[2017-08-20 12:45] VITALS: BP 104/65
[2017-08-20 18:47] VITALS: BP 106/66
[2017-08-20] MEDS: AMITRIPTYLINE 10 MG TABLET PO SCH (21:12)
[2017-08-21 02:00] VITALS: BP 126/74
[2017-08-21] MEDS: OXYcodone/APAP 10/325MG TABLET PO SCH ×2 (05:21→11:35)
[2017-08-21] MEDS: methylPREDNISolone SOD SUCC 40 MG/ML IV SCH ×2 (05:22→11:35)
[2017-08-21] MEDS: HEPARIN 5,000 UNITS/ML, 1ML SQ SCH ×2 (05:22→12:55)
[2017-08-21] MEDS: INSULIN LISPRO 100 UNITS/ML, PEN SQ-INSULIN SCH ×2 (07:00→11:40)
[2017-08-21 08:12] VITALS: BP 121/76
[2017-08-21] MEDS ORDERED: FUROSEMIDE 20 MG TABLET PO SCH (09:00)
[2017-08-21] MEDS: FLUTICASONE/VILANTEROL 100-25MCG/INH INH SCH (09:19)
[2017-08-21] MEDS: OxyconTIN ER 20 MG TAB.ER PO SCH (09:20)
[2017-08-21] MEDS: CARISOPRODOL 350 MG TABLET PO SCH (09:20)
[2017-08-21] MEDS: CEFTRIAXONE 2 GM in SODIUM CHLORIDE 0.9% 50 ML IVPB SCH (10:12)
[2017-08-21] MEDS ORDERED: CEFD300C37 PO (10:18)
[2017-08-21] MEDS ORDERED: METH4TAB2 PO (10:18)
[2017-08-21] MEDS ORDERED: AZIT500T5 PO (10:18)
[2017-08-21] MEDS: MAGNESIUM SULFATE IV SCH (10:39)
[2017-08-21] MEDS: POTASSIUM CHLORIDE IV SCH (10:39)
[2017-08-21] MEDS: POTASSIUM PHOSPHATE IV SCH (10:39)
[2017-08-21] MEDS: [UNRECOGNIZED DRUG - OTHER] IV SCH (10:39)
[2017-08-21] MEDS: FAMOTIDINE 20 MG TABLET PO SCH (10:39)
[2017-08-21] MEDS: AZITHROMYCIN 500 MG in SODIUM CHLORIDE 0.9% 250 ML IV SCH (10:39)
== END 2017-08-21 13:40 | disposition home or self-care (01) | DRG 871 ==
LOC: ED 08:45 → EDIP 09:38 → 4EST 10:54
PROVIDERS: ADMIT Family Medicine; ATTEND Family Medicine
DX: A41.9 Sepsis, unspecified organism (principal); J15.9 Unspecified bacterial pneumonia; J96.21 Acute and chronic respiratory failure with hypoxia; I11.0 Hypertensive heart disease with heart failure; E44.0 Moderate protein-calorie malnutrition; I50.9 Heart failure, unspecified; J44.0 Chronic obstructive pulmonary disease with (acute) lower respiratory infection; D64.9 Anemia, unspecified; Z68.35 Body mass index [BMI] 35.0-35.9, adult; E66.01 Morbid (severe) obesity due to excess calories; E78.00 Pure hypercholesterolemia, unspecified; F32.9 Major depressive disorder, single episode, unspecified; F41.1 Generalized anxiety disorder; K21.9 Gastro-esophageal reflux disease without esophagitis; Z99.81 Dependence on supplemental oxygen; Z96.653 Presence of artificial knee joint, bilateral; Z92.3 Personal history of irradiation; Z87.891 Personal history of nicotine dependence; Z87.01 Personal history of pneumonia (recurrent); Z86.72 Personal history of thrombophlebitis; Z86.718 Personal history of other venous thrombosis and embolism; Z86.711 Personal history of pulmonary embolism; Z85.3 Personal history of malignant neoplasm of breast
CPT/HCPCS: 36415; 71045; 80048; 81003; 82040; 82962; 83605; 84145; 85025; 85379; 87040; 87400; 93005; 99285; J0456; J0696; J1644; J2543; J3475; J3480; J1815; J2920; J7030; J7050

== ENCOUNTER → 2017-09-01 | Outpatient (CLI) | payer MEDICARE, OTHER ==
[~2017-09-01] MED LIST changes: +AZIT500T5 PO; +METH4TAB2 PO
[2017-09-01 14:02] LABS: BASOPHILS # (AUTO) 0.04 x10^3/uL (0-0.1); BASOPHILS % (AUTO) 0 % (0-1); EOSINOPHILS # (AUTO) 0.18 x10^3/uL (0-0.4); EOSINOPHILS % (AUTO) 2 % (1-7); LYMPHOCYTES # (AUTO) 2.41 x10^3/uL (1-3.4); LYMPHOCYTES % (AUTO) 27 % (22-44); MD NO; MEAN CORPUSCULAR HEMOGLOBIN 27.7 pg (27.0-34.8); MEAN CORPUSCULAR HGB CONC 31.9 g/dL (32.4-35.8); MEAN CORPUSCULAR VOLUME 86.9 fL (80-100); MEAN PLATELET VOLUME 8.9 fL (7.4-10.4); MONOCYTES # (AUTO) 0.46 x10^3/uL (0.2-0.8); MONOCYTES % (AUTO) 5 % (2-9); NEUTROPHILS # (AUTO) 5.86 x10^3/uL (1.8-6.8); NEUTROPHILS % (AUTO) 66 % (42-75); PLATELET COUNT 316 x10^3/uL (130-400); RED BLOOD COUNT 4.61 x10^6/uL (3.82-5.3); RED CELL DISTRIBUTION WIDTH 16.3 % (9.6-15.2)
[2017-09-01 14:12] LABS: ALANINE AMINOTRANSFERASE 34 U/L (12-78); ALBUMIN 3.1 g/dL (3.4-5.0); ANION GAP 10 mmol/L (5-15); CALCIUM 8.4 mg/dL (8.5-10.1); CHLORIDE 110 mmol/L (98-107); CREATININE 0.83 mg/dL (0.55-1.02)
[2017-09-01 14:21] LABS: % IRON SATURATION 14 % (20-55); ALKALINE PHOSPHATASE 143 U/L (45-117); BILIRUBIN,TOTAL 0.3 mg/dL (0.2-1.0); IRON LEVEL 47 mcg/dL (50-170); TOTAL IRON BINDING CAPACITY 348 mcg/dL (250-450); TOTAL PROTEIN 6.9 g/dL (6.4-8.2); TRANSFERRIN 307 mg/dL (200-360)
[2017-09-01 14:34] LABS: HEMOGLOBIN A1C 6.3 % (4.2-6.3)
== END ==
LOC: RAD 13:36
PROVIDERS: ATTEND Family Medicine
DX: J18.9 Pneumonia, unspecified organism (principal); R73.9 Hyperglycemia, unspecified
CPT/HCPCS: 36415; 71046; 80053; 82330; 82728; 83036; 83540; 83550; 84443; 84466; 85025

== ENCOUNTER 2017-09-12 06:31 | Inpatient (IN) | payer MEDICARE, OTHER ==
[~2017-09-12] VITALS: Ht 166.4 cm; Wt 95.8 kg
[2017-09-12] MEDS ORDERED: PIPERACILLIN/TAZO/PMX 4.5GM 100 ML IVPB ONE (07:30)
[2017-09-12] MEDS ORDERED: SODIUM CHLORIDE 0.9% 1,000ML IVBOLUS ONE (07:30)
[2017-09-12] MEDS ORDERED: VANCOMYCIN PER PHARMACY MC ONE (07:30)
[2017-09-12 07:47] LABS: BASOPHILS # (AUTO) 0.02 x10^3/uL (0-0.1); BASOPHILS % (AUTO) 0 % (0-1); EOSINOPHILS # (AUTO) 0.03 x10^3/uL (0-0.4); EOSINOPHILS % (AUTO) 0 % (1-7); LYMPHOCYTES # (AUTO) 0.52 x10^3/uL (1-3.4); LYMPHOCYTES % (AUTO) 7 % (22-44); MD NO; MEAN CORPUSCULAR HEMOGLOBIN 28.1 pg (27.0-34.8); MEAN CORPUSCULAR HGB CONC 32.8 g/dL (32.4-35.8); MEAN CORPUSCULAR VOLUME 85.7 fL (80-100); MEAN PLATELET VOLUME 8.8 fL (7.4-10.4); MONOCYTES # (AUTO) 0.05 x10^3/uL (0.2-0.8); MONOCYTES % (AUTO) 1 % (2-9); NEUTROPHILS # (AUTO) 7.17 x10^3/uL (1.8-6.8); NEUTROPHILS % (AUTO) 92 % (42-75); PLATELET COUNT 313 x10^3/uL (130-400); RED BLOOD COUNT 4.29 x10^6/uL (3.82-5.3); RED CELL DISTRIBUTION WIDTH 16.1 % (9.6-15.2)
[2017-09-12 07:52] LABS: ALANINE AMINOTRANSFERASE 30 U/L (12-78); ALBUMIN 3.1 g/dL (3.4-5.0); ANION GAP 10 mmol/L (5-15); CALCIUM 8.5 mg/dL (8.5-10.1); CHLORIDE 103 mmol/L (98-107); CREATININE 0.99 mg/dL (0.55-1.02)
[2017-09-12 07:54] LABS: ALKALINE PHOSPHATASE 180 U/L (45-117); BILIRUBIN,TOTAL 0.4 mg/dL (0.2-1.0); TOTAL PROTEIN 7.2 g/dL (6.4-8.2)
[2017-09-12] MEDS ORDERED: VANCOMYCIN 1,700 MG in SODIUM CHLORIDE 0.9% 250 ML IV ONE (08:00)
[2017-09-12 08:11] LABS: MICROSCOPIC NOT IND
[2017-09-12 08:17] LABS: CULTURE INDICATED? NO
[2017-09-12] MEDS ORDERED: NS + 40MEQ KCL 1,000 ML IV ONE (09:02)
[2017-09-12] MEDS ORDERED: POTASSIUM CHLORIDE 20 MEQ TAB.ER.PRT PO ONE (09:30)
[2017-09-12] MEDS ORDERED: POTASSIUM CHLORIDE 20 MEQ TAB.ER.PRT ONE (10:12)
[2017-09-12] MEDS ORDERED: NOREPINEPHRINE 4 MG in SODIUM CHLORIDE 0.9% 246 ML IV PRN (11:00)
[2017-09-12] MEDS ORDERED: ONDANSETRON 2MG/ML, 2ML IVPush PRN (11:00)
[2017-09-12] MEDS ORDERED: DIAZEPAM 10 MG TABLET PO PRN (11:00)
[2017-09-12] MEDS ORDERED: BISACODYL 10 MG SUPP PR PRN (11:00)
[2017-09-12] MEDS ORDERED: POLYETHYLENE GLYCOL 17 GM PACKET PO PRN (11:00)
[2017-09-12] MEDS ORDERED: VANCOMYCIN PER PHARMACY MC PRN (11:00)
[2017-09-12] MEDS ORDERED: ACETAMINOPHEN 325 MG TABLET PO PRN (11:00)
[2017-09-12 11:30] VITALS: BP 92/55
[2017-09-12] MEDS: ENOXAPARIN 40 MG/0.4 ML SQ SCH (11:49)
[2017-09-12] MEDS ORDERED: PHARMACOKINETIC CONSULTATION MC ONE (12:00)
[2017-09-12] MEDS ORDERED: PHARMACOKINETIC MONITORING MC PRN (12:00)
[2017-09-12] MEDS: PIPERACILLIN/TAZO/PMX 4.5GM 100 ML IV SCH ×2 (13:53→20:18)
[2017-09-12] MEDS ORDERED: DIAZEPAM 5 MG TABLET PO PRN (15:30)
[2017-09-12] MEDS: SODIUM CHLORIDE 0.9% 1,000 ML IV SCH (18:00)
[2017-09-12] MEDS: OxyconTIN ER 20 MG TAB.ER PO SCH (20:59)
[2017-09-12] MEDS: GABAPENTIN 300 MG CAPSULE PO SCH (20:59)
[2017-09-12] MEDS ORDERED: AMITRIPTYLINE 100 MG TABLET PO SCH (21:00)
[2017-09-12] MEDS ORDERED: VANCOMYCIN 1,000 MG in SODIUM CHLORIDE 0.9% 250 ML IV SCH (21:00)
[2017-09-12] MEDS: CARISOPRODOL 350 MG TABLET PO SCH (21:00)
[2017-09-12] MEDS ORDERED: AMITRIPTYLINE 10 MG TABLET PO SCH (21:00)
[2017-09-12] MEDS: AMITRIPTYLINE 50 MG TABLET PO SCH (21:05)
[2017-09-13] MEDS: PIPERACILLIN/TAZO/PMX 4.5GM 100 ML IV SCH ×4 (01:50→19:55)
[2017-09-13] MEDS: SODIUM CHLORIDE 0.9% 1,000 ML IV SCH ×2 (03:22→16:09)
[2017-09-13 04:00] VITALS: BP 116/67
[2017-09-13 04:52] LABS: BASOPHILS # (AUTO) 0.04 x10^3/uL (0-0.1); BASOPHILS % (AUTO) 0 % (0-1); EOSINOPHILS # (AUTO) 0.31 x10^3/uL (0-0.4); EOSINOPHILS % (AUTO) 3 % (1-7); LYMPHOCYTES # (AUTO) 1.59 x10^3/uL (1-3.4); LYMPHOCYTES % (AUTO) 14 % (22-44); MD NO; MEAN CORPUSCULAR HEMOGLOBIN 28.7 pg (27.0-34.8); MEAN CORPUSCULAR HGB CONC 33.3 g/dL (32.4-35.8); MEAN CORPUSCULAR VOLUME 86.4 fL (80-100); MEAN PLATELET VOLUME 8.8 fL (7.4-10.4); MONOCYTES # (AUTO) 0.47 x10^3/uL (0.2-0.8); MONOCYTES % (AUTO) 4 % (2-9); NEUTROPHILS # (AUTO) 8.78 x10^3/uL (1.8-6.8); NEUTROPHILS % (AUTO) 78 % (42-75); PLATELET COUNT 271 x10^3/uL (130-400); RED BLOOD COUNT 3.54 x10^6/uL (3.82-5.3); RED CELL DISTRIBUTION WIDTH 16.4 % (9.6-15.2)
[2017-09-13 05:10] LABS: ALBUMIN 2.3 g/dL (3.4-5.0); ANION GAP 8 mmol/L (5-15); CALCIUM 7.8 mg/dL (8.5-10.1); CHLORIDE 114 mmol/L (98-107)
[2017-09-13 05:13] LABS: ALANINE AMINOTRANSFERASE 30 U/L (12-78); ALKALINE PHOSPHATASE 142 U/L (45-117); BILIRUBIN,TOTAL 0.9 mg/dL (0.2-1.0); CREATININE 0.67 mg/dL (0.55-1.02); TOTAL PROTEIN 5.6 g/dL (6.4-8.2)
[2017-09-13] MEDS ORDERED: MAGNESIUM SULFATE PMX 2GM/50ML 50 ML IV ONE (07:30)
[2017-09-13] MEDS: VANCOMYCIN 1,700 MG in SODIUM CHLORIDE 0.9% 250 ML IV SCH (08:11)
[2017-09-13] MEDS: CARISOPRODOL 350 MG TABLET PO SCH ×2 (09:00→21:08)
[2017-09-13] MEDS: OxyconTIN ER 20 MG TAB.ER PO SCH ×2 (09:00→21:07)
[2017-09-13] MEDS: LISDEXAMFETAMINE DIMESYLATE 70 MG PO SCH (09:00)
[2017-09-13] MEDS: ENOXAPARIN 40 MG/0.4 ML SQ SCH (13:00)
[2017-09-13] MEDS: FLUOXETINE HCL 20 MG CAPSULE PO SCH (13:00)
[2017-09-13] MEDS: SENNA/DOCUSATE TABLET PO SCH (13:00)
[2017-09-13] MEDS: OXYcodone IR 5MG TABLET PO PRN (13:00)
[2017-09-13] MEDS: FLUTICASONE/VILANTEROL 100-25MCG/INH INH SCH (13:01)
[2017-09-13 20:00] VITALS: BP 121/97
[2017-09-13] MEDS: GABAPENTIN 300 MG CAPSULE PO SCH (21:07)
[2017-09-13] MEDS: AMITRIPTYLINE 50 MG TABLET PO SCH (21:08)
[2017-09-14] MEDS: SODIUM CHLORIDE 0.9% 1,000 ML IV SCH ×2 (02:18→16:06)
[2017-09-14] MEDS: PIPERACILLIN/TAZO/PMX 4.5GM 100 ML IV SCH ×2 (02:18→08:36)
[2017-09-14 02:22] VITALS: BP 107/63
[2017-09-14 08:33] VITALS: BP 129/68
[2017-09-14] MEDS: OxyconTIN ER 20 MG TAB.ER PO SCH ×2 (08:35→21:51)
[2017-09-14] MEDS: FLUOXETINE HCL 20 MG CAPSULE PO SCH ×2 (08:35→09:00)
[2017-09-14] MEDS: FLUTICASONE/VILANTEROL 100-25MCG/INH INH SCH (08:35)
[2017-09-14] MEDS: SENNA/DOCUSATE TABLET PO SCH (08:36)
[2017-09-14] MEDS: CARISOPRODOL 350 MG TABLET PO SCH ×2 (08:36→21:51)
[2017-09-14] MEDS: VANCOMYCIN 1,700 MG in SODIUM CHLORIDE 0.9% 250 ML IV SCH (08:43)
[2017-09-14] MEDS: LISDEXAMFETAMINE DIMESYLATE 70 MG PO SCH (08:47)
[2017-09-14 10:43] VITALS: BP 106/65
[2017-09-14] MEDS: LACTOBACILLUS CHEW TABLET PO SCH ×3 (11:50→21:51)
[2017-09-14] MEDS: ENOXAPARIN 40 MG/0.4 ML SQ SCH (11:50)
[2017-09-14] MEDS: AMPICILLIN/SULBACTAM 3 GM in SODIUM CHLORIDE 0.9% 100 ML IV SCH ×2 (12:05→18:01)
[2017-09-14] MEDS: OXYcodone IR 5MG TABLET PO PRN ×2 (12:07→16:06)
[2017-09-14 13:52] VITALS: BP 118/67
[2017-09-14 18:56] VITALS: BP 127/77
[2017-09-14] MEDS: AMITRIPTYLINE 50 MG TABLET PO SCH (21:51)
[2017-09-14] MEDS: GABAPENTIN 300 MG CAPSULE PO SCH (21:51)
[2017-09-15] MEDS: AMPICILLIN/SULBACTAM 3 GM in SODIUM CHLORIDE 0.9% 100 ML IV SCH ×4 (00:06→17:35)
[2017-09-15 01:15] VITALS: BP 126/76
[2017-09-15] MEDS: SODIUM CHLORIDE 0.9% 1,000 ML IV SCH ×3 (03:12→20:57)
[2017-09-15 06:07] LABS: ALBUMIN 2.1 g/dL (3.4-5.0); ANION GAP 7 mmol/L (5-15); CALCIUM 7.7 mg/dL (8.5-10.1); CHLORIDE 114 mmol/L (98-107)
[2017-09-15 06:10] LABS: BASOPHILS # (AUTO) 0.03 x10^3/uL (0-0.1); BASOPHILS % (AUTO) 0 % (0-1); EOSINOPHILS # (AUTO) 0.46 x10^3/uL (0-0.4); EOSINOPHILS % (AUTO) 6 % (1-7); LYMPHOCYTES # (AUTO) 1.54 x10^3/uL (1-3.4); LYMPHOCYTES % (AUTO) 20 % (22-44); MD NO; MEAN CORPUSCULAR HEMOGLOBIN 28.5 pg (27.0-34.8); MEAN CORPUSCULAR HGB CONC 32.9 g/dL (32.4-35.8); MEAN CORPUSCULAR VOLUME 86.6 fL (80-100); MEAN PLATELET VOLUME 8.8 fL (7.4-10.4); MONOCYTES # (AUTO) 0.51 x10^3/uL (0.2-0.8); MONOCYTES % (AUTO) 7 % (2-9); NEUTROPHILS # (AUTO) 5.16 x10^3/uL (1.8-6.8); NEUTROPHILS % (AUTO) 67 % (42-75); PLATELET COUNT 247 x10^3/uL (130-400); RED BLOOD COUNT 3.47 x10^6/uL (3.82-5.3); RED CELL DISTRIBUTION WIDTH 16.1 % (9.6-15.2)
[2017-09-15 06:12] LABS: ALANINE AMINOTRANSFERASE 24 U/L (12-78); ALKALINE PHOSPHATASE 150 U/L (45-117); BILIRUBIN,TOTAL 0.4 mg/dL (0.2-1.0); CREATININE 0.55 mg/dL (0.55-1.02); TOTAL PROTEIN 5.5 g/dL (6.4-8.2)
[2017-09-15 08:00] VITALS: BP 99/65
[2017-09-15] MEDS: FLUOXETINE HCL 20 MG CAPSULE PO SCH ×2 (08:18→08:22)
[2017-09-15] MEDS: FLUTICASONE/VILANTEROL 100-25MCG/INH INH SCH (08:18)
[2017-09-15] MEDS: LACTOBACILLUS CHEW TABLET PO SCH ×3 (08:18→20:56)
[2017-09-15] MEDS: OxyconTIN ER 20 MG TAB.ER PO SCH ×2 (08:19→20:57)
[2017-09-15] MEDS: SENNA/DOCUSATE TABLET PO SCH (08:19)
[2017-09-15] MEDS: CARISOPRODOL 350 MG TABLET PO SCH ×2 (08:19→20:57)
[2017-09-15] MEDS: LISDEXAMFETAMINE DIMESYLATE 70 MG PO SCH (08:20)
[2017-09-15 10:03] VITALS: BP 105/66
[2017-09-15] MEDS: ENOXAPARIN 40 MG/0.4 ML SQ SCH (11:12)
[2017-09-15 15:05] VITALS: BP 120/60
[2017-09-15 19:45] VITALS: BP 111/75
[2017-09-15] MEDS: AMITRIPTYLINE 50 MG TABLET PO SCH (20:56)
[2017-09-15] MEDS: GABAPENTIN 300 MG CAPSULE PO SCH (20:57)
[2017-09-16] MEDS: AMPICILLIN/SULBACTAM 3 GM in SODIUM CHLORIDE 0.9% 100 ML IV SCH ×3 (00:32→13:03)
[2017-09-16 02:49] VITALS: BP 145/81
[2017-09-16 07:46] VITALS: BP 136/78
[2017-09-16] MEDS: SENNA/DOCUSATE TABLET PO SCH (08:48)
[2017-09-16] MEDS: LACTOBACILLUS CHEW TABLET PO SCH (08:48)
[2017-09-16] MEDS: SODIUM CHLORIDE 0.9% 1,000 ML IV SCH (08:48)
[2017-09-16] MEDS: FLUOXETINE HCL 20 MG CAPSULE PO SCH (08:48)
[2017-09-16] MEDS: FLUTICASONE/VILANTEROL 100-25MCG/INH INH SCH (08:48)
[2017-09-16] MEDS: OxyconTIN ER 20 MG TAB.ER PO SCH (08:48)
[2017-09-16] MEDS: LISDEXAMFETAMINE DIMESYLATE 70 MG PO SCH (09:00)
[2017-09-16] MEDS: ENOXAPARIN 40 MG/0.4 ML SQ SCH (12:49)
[2017-09-16 13:07] VITALS: BP 144/80
[2017-09-16] MEDS ORDERED: AMOX1TAB64 PO (15:35)
[2017-09-16] MEDS ORDERED: PANT40TA5 PO (16:25)
[2017-09-16] MEDS ORDERED: FLUO40CA2 PO (16:25)
[2017-09-16] MEDS ORDERED: GABA300C10 PO (16:27)
[2017-09-16] MEDS ORDERED: LEVO1CAP10 PO (16:54)
== END 2017-09-16 17:10 | disposition home or self-care (01) | DRG 871 ==
LOC: ED 06:56 → EDIP 08:21 → CCU 11:16 → 4WST 09-14 10:45 → DCLOUNGE 09-16 16:40
PROVIDERS: ADMIT Internal Medicine; ATTEND Internal Medicine
PROC: 02HV33Z Insertion of Infusion Device into Superior Vena Cava, Percutaneous Approach (ICD-10-PCS; principal; 2017-09-12)
PROC: B548ZZA Ultrasonography of Superior Vena Cava, Guidance (ICD-10-PCS; 2017-09-12)
DX: A41.9 Sepsis, unspecified organism (principal); G93.41 Metabolic encephalopathy; J69.0 Pneumonitis due to inhalation of food and vomit; R65.21 Severe sepsis with septic shock; F13.20 Sedative, hypnotic or anxiolytic dependence, uncomplicated; I50.9 Heart failure, unspecified; E78.00 Pure hypercholesterolemia, unspecified; E78.5 Hyperlipidemia, unspecified; E87.6 Hypokalemia; F32.9 Major depressive disorder, single episode, unspecified; F41.9 Anxiety disorder, unspecified; G89.29 Other chronic pain; M54.9 Dorsalgia, unspecified; I11.0 Hypertensive heart disease with heart failure; J44.9 Chronic obstructive pulmonary disease, unspecified; K21.9 Gastro-esophageal reflux disease without esophagitis; Z82.5 Family history of asthma and other chronic lower respiratory diseases; Z85.3 Personal history of malignant neoplasm of breast; Z86.711 Personal history of pulmonary embolism; Z86.718 Personal history of other venous thrombosis and embolism; Z92.3 Personal history of irradiation; Z96.653 Presence of artificial knee joint, bilateral; Z99.81 Dependence on supplemental oxygen; R09.02 Hypoxemia; Z98.42 Cataract extraction status, left eye; Z98.41 Cataract extraction status, right eye
CPT/HCPCS: 36415; 71045; 74230; 80053; 80202; 81003; 83605; 83735; 85025; 87040; 87081; 93005; J0295; J1650; J2543; J3370; J3475; J3480; J7030; J7050

== ENCOUNTER 2018-01-31 15:01 | Emergency (ER) | payer MEDICARE, OTHER ==
[~2018-01-31] VITALS: Ht 165.1 cm; Wt 87.0 kg
[~2018-01-31 15:01] MED LIST changes: +AMOX1TAB64 PO; +GABA300C10 PO; +LEVO1CAP10 PO; +OXYC-432 PO; -OXYC1TAB9 PO
[2018-01-31 15:05] VITALS: BP 108/67
== END 2018-01-31 16:39 | disposition home or self-care (01) ==
LOC: ED 16:33
DX: S90.01XA Contusion of right ankle, initial encounter (principal); I50.9 Heart failure, unspecified; K21.9 Gastro-esophageal reflux disease without esophagitis; F32.9 Major depressive disorder, single episode, unspecified; J44.9 Chronic obstructive pulmonary disease, unspecified; E78.00 Pure hypercholesterolemia, unspecified; F41.9 Anxiety disorder, unspecified; C50.919 Malignant neoplasm of unspecified site of unspecified female breast; Z86.711 Personal history of pulmonary embolism; Z88.5 Allergy status to narcotic agent; Z87.891 Personal history of nicotine dependence; Z98.890 Other specified postprocedural states; W01.0XXA Fall on same level from slipping, tripping and stumbling without subsequent striking against object, initial encounter; Y93.89 Activity, other specified; Y92.89 Other specified places as the place of occurrence of the external cause; Y99.8 Other external cause status
CPT/HCPCS: 99284

== ENCOUNTER 2018-07-05 08:01 | Day surgery (SDC) | payer MEDICARE, OTHER ==
[~2018-07-05] VITALS: Ht 166.4 cm; Wt 81.2 kg
[~2018-07-05 08:01] MED LIST changes: -CLON2TAB2 PO; +CLON2TAB9 PO; -IPRA3AMP NPPB; +IPRA3AMP30 NPPB; +ROPIvacaine/PF 0.5%, 30 ML ONE
[2018-07-05 08:51] VITALS: BP 106/62
[2018-07-05] MEDS ORDERED: LACTATED RINGERS 1,000 ML IV SCH (08:56)
[2018-07-05] MEDS ORDERED: LIDOCAINE-MPF 1%, 2ML ONE (09:04)
[2018-07-05] MEDS ORDERED: IBUP-1223 PO (09:05)
[2018-07-05] MEDS ORDERED: CITA20TA6 PO (09:05)
[2018-07-05] MEDS ORDERED: CALC250T PO (09:05)
[2018-07-05] MEDS ORDERED: AMIT25TA PO (09:05)
[2018-07-05] MEDS ORDERED: CHOL200074 PO (09:05)
[2018-07-05] MEDS ORDERED: FLUT1DIS3 INH (09:22)
[2018-07-05] MEDS ORDERED: ALBU8.5H8 INH (09:22)
[2018-07-05] MEDS ORDERED: LIDOCAINE-MPF 1%, 2ML INFIL ONE (09:30)
[2018-07-05] MEDS ORDERED: MIDAZOLAM 1 MG/ML, 2ML ONE (10:58)
[2018-07-05] MEDS ORDERED: FENTANYL PF 100 MCG/2ML ONE ×2 (10:58→11:55)
[2018-07-05] MEDS ORDERED: DEXAMETHASONE 4 MG/ML, 1ML ONE (11:02)
[2018-07-05] MEDS ORDERED: CEFAZOLIN 1,000 MG ONE (11:02)
[2018-07-05] MEDS ORDERED: KETOROLAC 30 MG/1 ML ONE (11:02)
[2018-07-05] MEDS ORDERED: ONDANSETRON 2MG/ML, 2ML ONE (11:02)
[2018-07-05] MEDS ORDERED: BACITRACIN/POLYMIXIN B SULFATE OINT 14 GM ONE (11:22)
[2018-07-05] MEDS ORDERED: ACETAMINOPHEN 325 MG TABLET PO PRN (11:30)
[2018-07-05] MEDS ORDERED: OXYcodone 5 MG/5 ML ORAL.SOL UDC PO PRN (11:30)
[2018-07-05] MEDS ORDERED: ONDANSETRON 2MG/ML, 2ML IV PRN (11:30)
[2018-07-05] MEDS ORDERED: FENTANYL PF 100 MCG/2ML IV PRN (11:30)
[2018-07-05] MEDS ORDERED: LABETALOL 5MG/ML, 20ML IV PRN (11:30)
[2018-07-05] MEDS ORDERED: OXYcodone 5 MG/5 ML ORAL.SOL UDC ONE (11:55)
[2018-07-05] MEDS ORDERED: MORPHINE SULFATE 4 MG/ML, 1ML ONE (12:19)
[2018-07-05] MEDS: MORPHINE SULFATE 4 MG/ML, 1ML IVPush PRN ×2 (12:20→12:30)
== END 2018-07-05 16:55 | disposition home or self-care (01) ==
LOC: OUT 08:01
PROVIDERS: ATTEND Orthopaedic Surgery
DX: T84.84XA Pain due to internal orthopedic prosthetic devices, implants and grafts, initial encounter (principal); Y83.8 Other surgical procedures as the cause of abnormal reaction of the patient, or of later complication, without mention of misadventure at the time of the procedure; Y92.89 Other specified places as the place of occurrence of the external cause; J45.909 Unspecified asthma, uncomplicated; Z88.5 Allergy status to narcotic agent
CPT/HCPCS: 20680; 73600; 76000; 93005; J0690; J1100; J1885; J2250; J2405; J2795; J3010; J3490; J7120

== ENCOUNTER 2018-10-15 05:42 | Observation (INO) | payer MEDICARE, OTHER ==
[~2018-10-15] VITALS: Ht 165.1 cm; Wt 82.0 kg
[~2018-10-15 05:42] MED LIST changes: +ALBU8.5H8 INH; +AMIT25TA PO; +CALC250T PO; +CHOL200074 PO; +CITA20TA6 PO; +FLUT1DIS3 INH; +IBUP-1223 PO; -ROPIvacaine/PF 0.5%, 30 ML ONE
[2018-10-15] MEDS ORDERED: SODIUM CHLORIDE FLUSH 10ML SYR IVF ONE (06:00)
[2018-10-15] MEDS ORDERED: NITROGLYCERIN SINGLE TAB 0.4 MG SL ONE (06:01)
--- NOTE | 2018-10-15 06:10 | NUR ---
Pt reports 1/ pain, states "I dont think I need the nitro", MD aware, will hold nitro at this time per pt request and MD.
[2018-10-15 06:18] LABS: BASOPHILS # (AUTO) 0.05 x10^3/uL (0-0.1); BASOPHILS % (AUTO) 1 % (0-1); EOSINOPHILS # (AUTO) 0.18 x10^3/uL (0-0.4); EOSINOPHILS % (AUTO) 2 % (1-7); LYMPHOCYTES # (AUTO) 3.72 x10^3/uL (1-3.4); LYMPHOCYTES % (AUTO) 41 % (22-44); MD NO; MEAN CORPUSCULAR HEMOGLOBIN 29.3 pg (27.0-34.8); MEAN CORPUSCULAR HGB CONC 33.3 g/dL (32.4-35.8); MEAN CORPUSCULAR VOLUME 88.1 fL (80-100); MEAN PLATELET VOLUME 9.3 fL (7.4-10.4); MONOCYTES # (AUTO) 0.45 x10^3/uL (0.2-0.8); MONOCYTES % (AUTO) 5 % (2-9); NEUTROPHILS # (AUTO) 4.59 x10^3/uL (1.8-6.8); NEUTROPHILS % (AUTO) 51 % (42-75); PLATELET COUNT 288 x10^3/uL (130-400); RED BLOOD COUNT 4.59 x10^6/uL (3.82-5.3); RED CELL DISTRIBUTION WIDTH 14.7 % (9.6-15.2)
[2018-10-15 06:29] LABS: ALANINE AMINOTRANSFERASE 17 U/L (12-78); ANION GAP 6 mmol/L (5-15); CALCIUM 8.2 mg/dL (8.5-10.1); CHLORIDE 112 mmol/L (98-107); CREATININE 0.74 mg/dL (0.55-1.02)
[2018-10-15] MEDS ORDERED: NITROGLYCERIN 0.4 MG BOTTLE (25 TABS) SL PRN ×2 (06:30→09:00)
--- NOTE | 2018-10-15 06:30 | NUR ---
Pt sleeping in room, remains on cont cardiac and pulse ox monitoring, awaiting lab and radiology results.
[2018-10-15 06:33] LABS: ALKALINE PHOSPHATASE 137 U/L (45-117); BILIRUBIN,TOTAL 0.6 mg/dL (0.2-1.0); TOTAL PROTEIN 6.7 g/dL (6.4-8.2); TROPONIN I < 0.015 ng/mL (0.000-0.045)
[2018-10-15] MEDS ORDERED: SODIUM CHLORIDE FLUSH 10ML SYR IVF PRN (07:00)
--- NOTE | 2018-10-15 08:21 | NUR ---
PATIENT REMAINS CHEST PAIN FREE. VS WNL.
[2018-10-15] MEDS ORDERED: DOCUSATE 100 MG CAPSULE PO PRN (09:00)
[2018-10-15] MEDS ORDERED: DIAZEPAM 10 MG TABLET PO PRN (09:00)
[2018-10-15] MEDS ORDERED: hydrALAzine 20 MG/ML, 1ML IVPush PRN (09:00)
[2018-10-15] MEDS ORDERED: ACETAMINOPHEN 325 MG TABLET PO PRN (09:00)
[2018-10-15] MEDS ORDERED: ONDANSETRON ODT 4 MG PO PRN (09:00)
[2018-10-15] MEDS ORDERED: BISACODYL 10 MG SUPP PR PRN (09:00)
[2018-10-15] MEDS ORDERED: LABETALOL 5MG/ML, 20ML IVPush PRN (09:00)
[2018-10-15] MEDS: OxyconTIN ER 20 MG TAB.ER PO SCH ×2 (09:00→20:33)
[2018-10-15] MEDS ORDERED: ZOLPIDEM 5MG TABLET PO PRN (09:00)
[2018-10-15] MEDS ORDERED: ONDANSETRON 2MG/ML, 2ML IVPush PRN (09:00)
[2018-10-15] MEDS ORDERED: POLYETHYLENE GLYCOL 17 GM PACKET PO PRN (09:00)
[2018-10-15] MEDS ORDERED: ALBUTEROL SULFATE 2.5 MG/3 ML HHN PRN (09:00)
[2018-10-15] MEDS ORDERED: IBUPROFEN 800 MG TABLET PO PRN (09:00)
[2018-10-15 09:46] LABS: FREE T4 (FREE THYROXINE) 1.13 ng/dL (0.76-1.46); TROPONIN I < 0.015 ng/mL (0.000-0.045)
[2018-10-15 09:49] LABS: HCT (SEDRATE) 39.5 % (34.6-47.8)
[2018-10-15] MEDS ORDERED: BUDESONIDE 0.5 MG/2 ML INHA HHN SCH (10:00)
[2018-10-15] MEDS ORDERED: ALBUTEROL SULFATE 2.5 MG/3 ML HHN SCH (10:00)
[2018-10-15] MEDS ORDERED: PANTOPRAZOLE 20MG TABLET ONE (10:23)
[2018-10-15] MEDS ORDERED: CITALOPRAM 20 MG TABLET ONE (10:25)
[2018-10-15] MEDS: FAMOTIDINE 20 MG TABLET PO SCH ×2 (10:29→20:33)
[2018-10-15] MEDS: PANTOPROZOLE 40MG TABLET PO SCH (10:29)
[2018-10-15] MEDS: CITALOPRAM 20 MG TABLET PO SCH (10:30)
[2018-10-15] MEDS: CALCIUM CITRATE 950 MG TABLET PO SCH (10:31)
[2018-10-15] MEDS ORDERED: HEPARIN 5,000 UNITS/ML, 1ML ONE (10:37)
[2018-10-15] MEDS: HEPARIN 5,000 UNITS/ML, 1ML SQ SCH ×2 (10:40→18:11)
[2018-10-15 10:44] LABS: HEMOGLOBIN A1C 6.2 % (4.2-6.3)
[2018-10-15] MEDS: CHOLECALCIFEROL 1,000 UNIT TABLET PO SCH ×2 (11:17→20:33)
[2018-10-15 13:41] VITALS: BP 96/58
[2018-10-15 13:45] VITALS: BP 109/72
[2018-10-15 15:29] LABS: TROPONIN I < 0.015 ng/mL (0.000-0.045)
[2018-10-15] MEDS ORDERED: AMITRIPTYLINE 25 MG TABLET PO SCH (21:00)
[2018-10-15 21:13] VITALS: BP 97/67
[2018-10-16] MEDS: HEPARIN 5,000 UNITS/ML, 1ML SQ SCH ×2 (02:17→10:51)
[2018-10-16 03:22] VITALS: BP 107/71
[2018-10-16 05:54] LABS: BASOPHILS # (AUTO) 0.06 x10^3/uL (0-0.1); BASOPHILS % (AUTO) 1 % (0-1); EOSINOPHILS # (AUTO) 0.25 x10^3/uL (0-0.4); EOSINOPHILS % (AUTO) 3 % (1-7); LYMPHOCYTES # (AUTO) 3.34 x10^3/uL (1-3.4); LYMPHOCYTES % (AUTO) 43 % (22-44); MD NO; MEAN CORPUSCULAR HEMOGLOBIN 28.9 pg (27.0-34.8); MEAN CORPUSCULAR HGB CONC 32.8 g/dL (32.4-35.8); MEAN CORPUSCULAR VOLUME 88.2 fL (80-100); MEAN PLATELET VOLUME 9.4 fL (7.4-10.4); MONOCYTES # (AUTO) 0.55 x10^3/uL (0.2-0.8); MONOCYTES % (AUTO) 7 % (2-9); NEUTROPHILS # (AUTO) 3.66 x10^3/uL (1.8-6.8); NEUTROPHILS % (AUTO) 47 % (42-75); PLATELET COUNT 286 x10^3/uL (130-400); RED BLOOD COUNT 4.67 x10^6/uL (3.82-5.3); RED CELL DISTRIBUTION WIDTH 14.4 % (9.6-15.2)
[2018-10-16] MEDS ORDERED: ASPIRIN 325 MG TABLET EC PO SCH (06:00)
[2018-10-16 06:03] LABS: CHLORIDE 112 mmol/L (98-107)
[2018-10-16 06:09] LABS: ANION GAP 4 mmol/L (5-15); CALCIUM 8.8 mg/dL (8.5-10.1); CREATININE 0.75 mg/dL (0.55-1.02)
[2018-10-16] MEDS: FAMOTIDINE 20 MG TABLET PO SCH (08:45)
[2018-10-16] MEDS: OxyconTIN ER 20 MG TAB.ER PO SCH (08:45)
[2018-10-16] MEDS: CITALOPRAM 20 MG TABLET PO SCH (08:45)
[2018-10-16] MEDS: PANTOPROZOLE 40MG TABLET PO SCH (08:45)
[2018-10-16] MEDS: CHOLECALCIFEROL 1,000 UNIT TABLET PO SCH (08:47)
[2018-10-16] MEDS: CALCIUM CITRATE 950 MG TABLET PO SCH (08:47)
[2018-10-16 09:00] VITALS: BP 106/67
[2018-10-16] MEDS ORDERED: REGADENOSON 0.4 MG/5 ML SYRINGE ONE (09:14)
[2018-10-16 13:30] VITALS: BP 98/61
[2018-10-16 14:25] VITALS: BP 100/61
== END 2018-10-16 16:13 | disposition home or self-care (01) ==
LOC: ED 06:13 → INTOOBSV 06:47 → EDIP 06:47 → 5SO 13:26
PROVIDERS: ADMIT Hospitalist; ATTEND Hospitalist
DX: R07.89 Other chest pain (principal); J44.9 Chronic obstructive pulmonary disease, unspecified; F41.9 Anxiety disorder, unspecified; F32.9 Major depressive disorder, single episode, unspecified; K21.9 Gastro-esophageal reflux disease without esophagitis; G89.29 Other chronic pain; E78.5 Hyperlipidemia, unspecified; E78.00 Pure hypercholesterolemia, unspecified; I11.0 Hypertensive heart disease with heart failure; I50.9 Heart failure, unspecified; Z82.5 Family history of asthma and other chronic lower respiratory diseases; Z85.3 Personal history of malignant neoplasm of breast; Z86.711 Personal history of pulmonary embolism; Z86.72 Personal history of thrombophlebitis; Z87.891 Personal history of nicotine dependence; Z92.3 Personal history of irradiation; Z96.653 Presence of artificial knee joint, bilateral
CPT/HCPCS: 36415; 71045; 78452; 80048; 80053; 83036; 83690; 84439; 84443; 84484; 85025; 85379; 85651; 93005; 93017; 93306; 96372; 99284; A9502; C9898; G0378; J1644; J2785

== ENCOUNTER 2019-11-22 16:14 | Emergency (ER) | payer MEDICARE, OTHER ==
[~2019-11-22] VITALS: Ht 167.6 cm; Wt 88.7 kg
[~2019-11-22 16:14] MED LIST changes: +AZIT500T10 PO; -AZIT500T5 PO; +FLUO10CA14 PO; -FLUO10CA7 PO
[2019-11-22] MEDS ORDERED: TRAZ-96 PO (16:55)
[2019-11-22] MEDS ORDERED: DULO30CA4 PO (16:55)
[2019-11-22 17:32] LABS: BASOPHILS # (AUTO) 0.06 x10^3/uL (0-0.1); BASOPHILS % (AUTO) 1 % (0-1); EOSINOPHILS % (AUTO) 3 % (1-7); LYMPHOCYTES # (AUTO) 3.06 x10^3/uL (1-3.4); LYMPHOCYTES % (AUTO) 40 % (22-44); MD NO; MEAN CORPUSCULAR HEMOGLOBIN 28.2 pg (27.0-34.8); MEAN CORPUSCULAR HGB CONC 32.3 g/dL (32.4-35.8); MEAN CORPUSCULAR VOLUME 87.2 fL (80-100); MEAN PLATELET VOLUME 9.5 fL (7.4-10.4); MONOCYTES # (AUTO) 0.58 x10^3/uL (0.2-0.8); MONOCYTES % (AUTO) 8 % (2-9); NEUTROPHILS # (AUTO) 3.68 x10^3/uL (1.8-6.8); NEUTROPHILS % (AUTO) 49 % (42-75); PLATELET COUNT 246 x10^3/uL (130-400); RED BLOOD COUNT 4.62 x10^6/uL (3.82-5.3); RED CELL DISTRIBUTION WIDTH 15.5 % (9.6-15.2)
--- NOTE | 2019-11-22 17:37 | NUR ---
PT RETURNED FROM CT. ATTACHED TO MONITORS. PT IS STABLE, DENIES HEADACHE.
[2019-11-22 17:43] LABS: ALBUMIN 3.1 g/dL (3.4-5.0); ANION GAP 6 mmol/L (5-15); CALCIUM 8.6 mg/dL (8.5-10.1); CHLORIDE 112 mmol/L (98-107)
[2019-11-22 17:46] LABS: ALANINE AMINOTRANSFERASE 19 U/L (12-78); ALKALINE PHOSPHATASE 138 U/L (45-117); BILIRUBIN,TOTAL 0.6 mg/dL (0.2-1.0); TOTAL PROTEIN 6.7 g/dL (6.4-8.2); TROPONIN I < 0.015 ng/mL (0.000-0.045)
--- NOTE | 2019-11-22 19:24 | NUR ---
DISCHARGE INSTRUCTIONS GIVEN TO PATIENT WITH FOLLOW UP INFORMATION. PT ENCOURAGED TO SELF QUARATINE FOR THE NEXT 14 DAYS. PT VERBALIZES UNDERSTANDING OF ALL INSTRUCTIONS AND FOLLOW UP. PT AMBULATED OUT OF ED WITH STRONG STEADY GAIT.
[2019-11-22 19:26] VITALS: BP 132/73
== END 2019-11-22 19:30 | disposition home or self-care (01) ==
LOC: ED 17:06
DX: R51 Headache (principal); I11.0 Hypertensive heart disease with heart failure; I50.9 Heart failure, unspecified; K21.9 Gastro-esophageal reflux disease without esophagitis; J44.9 Chronic obstructive pulmonary disease, unspecified; R94.31 Abnormal electrocardiogram [ECG] [EKG]; E78.00 Pure hypercholesterolemia, unspecified; Z87.891 Personal history of nicotine dependence
CPT/HCPCS: 36415; 70450; 71045; 80053; 83880; 84484; 85025; 93005; 99285

== ENCOUNTER 2020-03-11 16:44 | Emergency (ER) | payer MEDICARE, OTHER ==
[~2020-03-11] VITALS: Ht 165.1 cm; Wt 84.3 kg
[~2020-03-11 16:44] MED LIST changes: +DULO30CA4 PO; +TRAZ-96 PO
--- NOTE | 2020-03-11 18:18 | NUR ---
EXTRUSION LINE OPERATOR: PT AMBULATORY WITH STEADY GAIT USING CANE TO ROOM AT THIS TIME.
--- NOTE | 2020-03-11 18:58 | NUR ---
REPORT GIVEN TO MARVEL CHA.
[2020-03-11] MEDS ORDERED: SODIUM CHLORIDE FLUSH 10ML SYR IVF ONE (19:00)
--- NOTE | 2020-03-11 19:00 | NUR ---
RECEIVED BS REPORT FROM SEMAJ CHONG TO ASSUME CARE OF PT. LAB AT BS FOR BLOOD DRAW. NO DISTRESS NOTED. VS UPDATED. CARDIAC MONIOTR, SPO2, B/P MONIOTORS IN PLACE. ALL SAFETY MEASURES OBSERVED.
[2020-03-11 19:21] LABS: ALANINE AMINOTRANSFERASE 15 U/L (12-78); ALBUMIN 3.2 g/dL (3.4-5.0); ANION GAP 4 mmol/L (5-15); CALCIUM 8.4 mg/dL (8.5-10.1); CHLORIDE 110 mmol/L (98-107); CREATININE 0.73 mg/dL (0.55-1.02)
[2020-03-11 19:24] LABS: BASOPHILS # (AUTO) 0.04 x10^3/uL (0-0.1); BASOPHILS % (AUTO) 1 % (0-1); EOSINOPHILS % (AUTO) 3 % (1-7); LYMPHOCYTES # (AUTO) 3.09 x10^3/uL (1-3.4); LYMPHOCYTES % (AUTO) 44 % (22-44); MD NO; MEAN CORPUSCULAR HEMOGLOBIN 27.9 pg (27.0-34.8); MEAN CORPUSCULAR HGB CONC 32.3 g/dL (32.4-35.8); MEAN CORPUSCULAR VOLUME 86.3 fL (80-100); MEAN PLATELET VOLUME 10.6 fL (7.4-10.4); MONOCYTES # (AUTO) 0.47 x10^3/uL (0.2-0.8); MONOCYTES % (AUTO) 7 % (2-9); NEUTROPHILS # (AUTO) 3.22 x10^3/uL (1.8-6.8); NEUTROPHILS % (AUTO) 46 % (42-75); PLATELET COUNT 277 x10^3/uL (130-400); RED BLOOD COUNT 4.53 x10^6/uL (3.82-5.3); RED CELL DISTRIBUTION WIDTH 15.4 % (9.6-15.2)
[2020-03-11 19:25] LABS: ALKALINE PHOSPHATASE 139 U/L (45-117); BILIRUBIN,TOTAL 0.8 mg/dL (0.2-1.0); T4 (THYROXINE) 9.6 mcg/dL (4.8-13.9); TOTAL PROTEIN 6.8 g/dL (6.4-8.2); TROPONIN I < 0.015 ng/mL (0.000-0.045)
[2020-03-11] MEDS ORDERED: SODIUM CHLORIDE 0.9% 1,000ML IVBOLUS ONE (19:30)
[2020-03-11 20:26] LABS: MICROSCOPIC INDICATED
--- NOTE | 2020-03-11 20:40 | NUR ---
IV ESTABLISHED/IVF INFUSING. VS UPDATED. URINE PENDING. PT. DENIES OTHER NEEDS.
--- NOTE | 2020-03-11 21:06 | NUR ---
ALL RESULTS BACK AT THIS TIME. CHART UP FOR RECHECK BY ERP.
[2020-03-11 21:53] VITALS: BP 135/59
== END 2020-03-11 22:14 | disposition home or self-care (01) ==
LOC: ED 19:16
DX: R55 Syncope and collapse (principal); K21.9 Gastro-esophageal reflux disease without esophagitis; J44.9 Chronic obstructive pulmonary disease, unspecified; I50.9 Heart failure, unspecified; R07.9 Chest pain, unspecified; G89.29 Other chronic pain; Z86.718 Personal history of other venous thrombosis and embolism; Z85.3 Personal history of malignant neoplasm of breast
CPT/HCPCS: 36415; 70450; 71045; 80053; 81001; 83880; 84436; 84443; 84484; 85025; 93005; 96360; 99285; J7030

== ENCOUNTER 2021-04-27 18:05 | Emergency (ER) | payer MEDICARE, OTHER ==
[~2021-04-27] VITALS: Ht 166.4 cm; Wt 83.6 kg
[~2021-04-27 18:05] MED LIST changes: -FLUO10CA14 PO; +FLUO10CA15 PO; -OXYC-307 PO; -OXYC-432 PO; +OXYC-501 PO; +OXYC1TAB18 PO; -PANT40TA5 PO; +PANT40TA6 PO; +POTA-138 PO; -POTA10TA12 PO; -POTA99TA14 PO; +POTA99TA19 PO
[2021-04-27 18:19] VITALS: BP 127/42
[2021-04-27 18:47] LABS: BASOPHILS % (AUTO) 1 % (0-1); EOSINOPHILS % (AUTO) 4 % (1-7); LYMPHOCYTES % (AUTO) 60 % (22-44); MEAN CORPUSCULAR HEMOGLOBIN 29.3 pg (27.0-34.8); MEAN CORPUSCULAR HGB CONC 33.3 g/dL (32.4-35.8); MEAN PLATELET VOLUME 9.4 fL (7.4-10.4); MONOCYTES % (AUTO) 8 % (2-9); NEUTROPHILS % (AUTO) 27 % (42-75); PLATELET COUNT 239 x10^3/uL (130-400); RED BLOOD COUNT 4.62 x10^6/uL (3.82-5.3); RED CELL DISTRIBUTION WIDTH 13.5 % (9.6-15.2)
[2021-04-27 18:59] LABS: ALANINE AMINOTRANSFERASE 21 U/L (12-78); ALBUMIN 3.2 g/dL (3.4-5.0); ANION GAP 5 mmol/L (5-15); CALCIUM 9.6 mg/dL (8.5-10.1); CHLORIDE 107 mmol/L (98-107); CREATININE 0.81 mg/dL (0.55-1.02)
[2021-04-27 19:01] LABS: ALKALINE PHOSPHATASE 118 U/L (45-117); BILIRUBIN,TOTAL 0.6 mg/dL (0.2-1.0); TOTAL PROTEIN 7.1 g/dL (6.4-8.2)
[2021-04-27 21:03] LABS: MICROSCOPIC INDICATED
--- NOTE | 2021-04-27 21:24 | NUR ---
NA X 1
--- NOTE | 2021-04-27 21:55 | NUR ---
NA X 2
--- NOTE | 2021-04-27 22:22 | NUR ---
NA X 3
== END 2021-04-27 22:24 | disposition left against medical advice (07) ==
LOC: ED 18:10
DX: R10.84 Generalized abdominal pain (principal); R11.0 Nausea
CPT/HCPCS: 36415; 80053; 81001; 83690; 85025; 87086; 99283